=== PATIENT | male | born 1955 | race Caucasian/White ===

== ENCOUNTER 2021-01-31 13:55 | Emergency (ER) | payer BC, SELFPAY ==
[2021-01-31] VITALS (27 sets, daily range): BP systolic 171–227; BP diastolic 102–135; PULSE 59–76; RESP 11–24; TEMP 36.8–36.9; O2SAT 93–99
--- NOTE | 2021-01-31 14:08 | ECG_ITS ---
Measurements Intervals [place] Rate: 62 P: 37 OR: 251 QRS: -44 QRSD: 90 T: 33 QT: 403 QTc: 409 Interpretive Statements SINUS RHYTHM WITH FIRST DEGREE AV BLOCK LEFT AXIS DEVIATION POOR R WAVE PROGRESSION, ANTERIOR LEADS CONSIDER INFERIOR INFARCT, AGE INDETERMINATE BORDERLINE ST ABNORMALITY- HIGH LATERAL LEADS ABNORMAL ECG Electronically Signed On 01-31-2021 14:25:11 CDT by Rod Kilpatrick D.O.
[2021-01-31 14:33] LABS: Basophils Absolute Auto 0.1 K/mm3 (0.0-0.1); Basophils Percent Auto 1.2 % (0.2-1.2); Eosinophils Absolute Auto 0.2 K/mm3 (0-0.3); Eosinophils Percent Auto 4.1 % (0-4.4); Hematocrit 44.1 % (42.0-52.0); Hemoglobin 14.4 g/dL (14.0-18.0); Immature Granulocyte Absolute 0.02 K/mm3 (0.00-0.031); Immature Granulocyte Percent A 0.3 % (0-0.5); Lymphocytes Absolute Auto 1.28 K/mm3 (0.9-3.2); Mean Corpuscular HGB Conc 32.7 g/dl (32-36); Mean Corpuscular Hemoglobin 31.6 pg (26-34); Mean Corpuscular Volume 96.9 fl (80-100); Mean Platelet Volume 10.6 fl (7.4-10.4); Monocytes Absolute Auto 0.8 K/mm3 (0.1-0.6); Monocytes Percent Auto 13.8 % (2.6-8.5); Neutrophils Absolute Auto 3.4 K/mm3 (1.3-6.7); Neutrophils Percent Auto 58.6 % (45.5-73.1); Platelet Count Result 223 k/mm3 (150-375); Red Blood Count 4.55 M/mm3 (4.6-6.20); Red Cell Distribution Width 13.6 % (11.5-14.5); White Blood Count 5.8 K/mm3 (4.5-10.0)
[2021-01-31 14:36] LABS: Add Urine Microscopic? NO; Appearance Urine Clear (Clear); Bilirubin Urine Negative (Negative); Blood Urine Negative (Negative); Color Urine Yellow (Yellow); Glucose Urine UA Negative (Negative); Ketones Urine Negative (Negative); Leukocyte Esterase Ur Negative LEU/UL (Negative); Nitrate Urine Negative (Negative); Protein Urine Negative (Negative); Specific Grav Ur 1.015 (1.001-1.035); Urobilinogen Urine Negative mg/dL (<2.0)
[2021-01-31 14:43] LABS: Anion Gap 9 mmol/L (8-16); Blood Urea Nitrogen 16 mg/dL (9-20); Calcium 9.5 mg/dL (8.4-10.2); Carbon Dioxide 27 mmol/L (22-30); Chloride 102 mmol/L (98-107); Estimated CRCL calculation 108 ml/min; Estimated Glomerular Filt Rate > 60; Glucose 97 mg/dL (65-110); Potassium 4.2 mmol/L (3.4-5.0); Sodium 138 mmol/L (137-145)
[2021-01-31] MEDS: LORazepam (*CRX) 0.5 MG TABLET 1 MG PO (16:36)
--- NOTE | 2021-01-31 17:10 | ED.GENADULT ---
HPI - General Adult General Chief complaint: Recheck/Abnormal Lab/Rx Stated complaint: htn Time Seen by Provider: 01/31/21 16:21 Source: patient and RN notes reviewed Mode of arrival: ambulatory Limitations: no limitations History of Present Illness HPI narrative: Patient is 65 years old white male presented to the ED with elevated blood pressure, patient is asymptomatic. Patient scheduled to remove his teeth today. History of hypertension and Coreg 25 mg twice daily, losartan 100 mg a.m. Patient received his blood pressure this morning. Blood pressure measurement all day long yesterday was within normal limits. Patient was a scheduled to remove his teeth 4 days ago, blood pressure found to be elevated at the dentist office, patient received diazepam and was asked to call his family physician for further evaluation. Patient blood pressure has been within normal limit the last few days. Currently patient denying any headache, nausea, vomiting, chest pain, shortness of breath, back pain, abdominal pain or any other symptoms. Patient did not eat his breakfast this morning. Related Data Home Medications Medication Instructions Recorded Confirmed apixaban [Eliquis] 5 mg PO BID 01/31/21 atorvastatin [Lipitor] DAILY 01/31/21 carvedilol [Coreg] 25 mg PO BID 01/31/21 colchicine 0.6 mg PO DAILY 01/31/21 diazepam 10 mg PO BID PRN 01/31/21 ezetimibe [Zetia] mg 01/31/21 losartan 100 mg PO DAILY 01/31/21 Allergies Allergy/AdvReac Type Severity Reaction Status Date / Time vancomycin Allergy Redness of Verified 01/31/21 16:20 Skin verapamil Allergy Redness of Verified 01/31/21 16:20 Skin Review of Systems Review of Systems: Narrative: CONSTITUTIONAL: Denies fever, chills, or sweats. EYES: Denies visual changes, redness, or discharge. ENT: Denies rhinorrhea, congestion, sore throat, or otalgia. CARDIOVASCULAR: Denies chest pain, palpitations, or edema. RESPIRATORY: Denies cough or dyspnea. GASTROINTESTINAL: Denies abdominal pain, nausea, vomiting, or diarrhea. GENITOURINARY: Denies dysuria or hematuria. SKIN: Denies rash or itching. MUSCULOSKELETAL: Denies back pain, joint pain, or myalgia. NEUROLOGIC: Denies headache, numbness, or weakness. PSYCHIATRIC: Denies anxiety or depression. Exam Narrative: Exam Narrative: General appearance: Well-developed, well-nourished Skin: Normal color Head: Normocephalic, nontraumatic Eyes: Clear conjunctiva ENT: Oropharynx normal, ears normal, nose normal Neck: Supple, nontender Chest and respiratory: Airway patent, no respiratory distress, no accessory muscle use Heart: Regular rate/rhythm Abdomen: Soft, nontender, no organomegaly, quiet bowel sounds Vascular: Normal peripheral pulses, normal capillary refill. Musculoskeletal: Normal range of motion, nontender back Neurologic: Alert and oriented ?3, [employer] is normal as tested, no gross motor deficit Course Course Emergency Course: Improving Reevaluation(s) Reevaluation #1: Patient still asymptomatic, currently blood pressure is 176/106. The plan to discharge patient home, scheduled to take his night dose of losartan, 100 mg. I believe the stress and the worry feeling about the dental extraction is underlying cause of patient elevated blood pressure. Date: 01/31/21 Time: 18:32 Vital Signs Vital signs: Vital Signs Temperature 36.8 C 01/31/21 14:09 Pulse Rate 64 01/31/21 14:09 Respiratory Rate 16 01/31/21 14:09 Blood Pressure 181/107 H 01/31/21 14:09 Pulse Oximetry 96 01/31/21 14:09 Temperature 36.9 C 01/31/21 16:16 Pulse Rate 63 01/31/21 18:22 Respiratory Rate 15 01/31/21 18:22 Blood Pressure 178/105 H 01/31/21 18:22
[2021-01-31] MEDS: LABETALOL HCL INJ 100 MG/20 ML VIAL 20 MG IV PUSH (18:16)
--- NOTE | 2021-01-31 18:45 | PC.NURSE ---
Per EDP, Dr. Hwang, patient okay for discharge with blood pressure of 190/118. EDP states that patient is asymptomatic and is okay for discharge.
--- NOTE | 2021-01-31 18:47 | PC.NURSE ---
Dr. Hwang gives VORB of 0.1mg of Clonidine Q20 minutes x 3 doses max for hypertension while patient waits for daughter to pick him up.
[2021-01-31] MEDS: cloNIDine HCL 0.1 MG TABLET PO (18:51)
--- NOTE | 2021-01-31 19:21 | PC.NURSE ---
Manual BP 172/104. Per Dr Hwang, patient could be discharged once BP was in the 170s. Dr Clemente was notified of blood pressure, patient is asymptomatic- denies headache or chest pain. Patient is OK to be discharged with referral for follow-up of HTN per Dr Clemente. No prescriptions given, Dr Clemente notified.
== END 2021-01-31 19:38 | disposition home or self-care (01) ==
PROVIDERS: Emergency Provider Emergency Medicine
DX: I10 Essential (primary) hypertension (principal); F41.9 Anxiety disorder, unspecified; R94.31 Abnormal electrocardiogram [ECG] [EKG]
CPT/HCPCS: 36415; 80048; 81003; 85025; 93005; 96374; 99284; A9270

== ENCOUNTER 2024-03-16 09:54 | Emergency (ER) | payer BC, MEDICARE, SELFPAY ==
[2024-03-16 10:44] VITALS: BP 165/86; PULSE 72; RESP 16; TEMP 36.6; O2SAT 100
--- NOTE | 2024-03-16 12:54 | ED.GENADULT ---
HPI - General Adult General Chief complaint: Extremity Problem,Nontraumatic Stated complaint: Lt Lower Leg Bump Time Seen by Provider: 03/16/24 11:14 Source: patient, RN notes reviewed and old records reviewed Mode of arrival: ambulatory Limitations: no limitations History of Present Illness HPI narrative: 68-year-old male to [facility] for complaint of wound to left lower posterior leg. Patient states wound 1st appeared approximately 10 days ago after doing yd work. Patient reports that initially there were to small, raised, red lesions right next to each other that appeared to be insect bites/ stings. Patient reports keeping area clean with antibacterial soap and treating with antibacterial ointment and mupirocin that he got from his daughter. Patient states that surrounding area became significantly erythematous, edematous, warm and tender to touch for the 1st few days. Patient states that symptoms have improved significantly. Patient reports he is here today for a wound check because has a dark single scab that has formed over the central area where there are 2 lesions were initially present. Patient denies pain, swelling, Weakness, tingling numbness, fever, nausea, headache, chills, myalgias, urinary or bowel changes, pertinent medical history, shortness of breath, chest pain. Patient able to tolerate fluids by mouth. Respirations even and nonlabored. Patient resting comfortably in exam room in no acute distress. Related Data Home Medications Medication Instructions Recorded Confirmed apixaban 5 mg tablet (Eliquis) 5 mg PO BID 01/31/21 03/16/24 ezetimibe 10 mg tablet (Zetia) 10 mg DIRECTED 01/31/21 03/16/24 carvedilol 25 mg tablet 25 mg DIRECTED 03/16/24 03/16/24 rosuvastatin 40 mg tablet 40 mg DIRECTED 03/16/24 03/16/24 sacubitril 49 mg-valsartan 51 mg 1 tablet DIRECTED 03/16/24 03/16/24 tablet (Entresto) Allergies Allergy/AdvReac Type Severity Reaction Status Date / Time vancomycin Allergy Redness of Verified 01/31/21 16:20 Skin verapamil Allergy Redness of Verified 01/31/21 16:20 Skin Review of Systems Review of Systems: All systems reviewed & are unremarkable except as noted in HPI and below Constitutional: Constitutional: Reports no additional constitutional complaints Eyes: Eyes: Reports no additional eye complaints ENT: Reports system reviewed and no additional complaints, except as documented Cardiovascular: Cardiovascular: Reports no additional cardiovascular complaints, Denies chest pain and Denies dyspnea Respiratory: Respiratory: Reports no additional respiratory complaints, Denies cough and Denies dyspnea Musculoskeletal: Musculoskeletal: Reports no additional musculoskeletal complaints Integumentary/Breasts: Skin/Breast: Reports as per HPI and Reports wounds ( left posterior lower leg) Neurologic: Reports system reviewed and no additional complaints, except as documented Psychiatric: Psychiatric: Reports no additional psychiatric complaints PMFSH Comments At the time of my signature, I reviewed and agree with the nursing past medical, surgical, social, and family history. There is no relevant family history pertinent to the patient complaint. Exam Const: General: cooperative, healthy appearing, comfortable, no acute distress, alert and well nourished Nutritional Appearance: well nourished Orientation/consciousness: patient oriented x3 Limitations: no limitations HENMT: Head: normal to inspection Ears: external ears normal Face/Nose/Sinus: Normal external nose present, Normal nares present, normal facial exam, No erythema and No edema Face and sinus: normal facial exam, no erythema and no edema Mouth: Yes Normal oral and palatal mucosa present Eyes: General: appearance normal, both eyes and all related structures Neck: Neck: normal visual inspection, full ROM and no meningeal signs Lymphatic: no lymphadenopathy noted and no lymphedema noted Chest: Ches
== END 2024-03-16 11:50 | disposition home or self-care (01) ==
PROVIDERS: Emergency Provider Nurse Practitioner Family; PCP Internal Medicine Gastroenterology
DX: L03.116 Cellulitis of left lower limb (principal); I10 Essential (primary) hypertension; I25.2 Old myocardial infarction; I48.91 Unspecified atrial fibrillation; Z79.01 Long term (current) use of anticoagulants
CPT/HCPCS: 99213; G0463

== ENCOUNTER 2024-03-23 07:18 | Emergency (ER) | payer MEDICARE, SELFPAY ==
[2024-03-23 09:54] VITALS: BP 168/97; PULSE 66; RESP 16; O2SAT 97
--- NOTE | 2024-03-23 10:14 | ED.SKABFB ---
HPI - Skin/Abscess/Foreign Bdy General Chief complaint: Skin/Abscess/Foreign Body Stated complaint: insect bite Time Seen by Provider: 03/23/24 09:50 Source: patient Mode of arrival: ambulatory Limitations: no limitations History of Present Illness HPI narrative: Patient presents with a L calf wound. He thinks it originally was an insect (bug/spider) bite. He was seen at an urgent care within the past week and prescribed cephalexin 7 day course. He has 2 left. He notes it was improving and then started having increased pain (though denies any swelling). No fevers/chills. It is less painful than it was though still some pain. However, the redness is coming back and this is why he wanted it checked. Related Data Home Medications Medication Instructions Recorded Confirmed apixaban 5 mg tablet (Eliquis) 5 mg PO BID 01/31/21 03/16/24 ezetimibe 10 mg tablet (Zetia) 10 mg DIRECTED 01/31/21 03/16/24 carvedilol 25 mg tablet 25 mg DIRECTED 03/16/24 03/16/24 rosuvastatin 40 mg tablet 40 mg DIRECTED 03/16/24 03/16/24 sacubitril 49 mg-valsartan 51 mg 1 tablet DIRECTED 03/16/24 03/16/24 tablet (Entresto) Allergies Allergy/AdvReac Type Severity Reaction Status Date / Time vancomycin Allergy Redness of Verified 03/23/24 07:22 Skin verapamil Allergy Redness of Verified 03/23/24 07:22 Skin Exam Narrative: GENERAL: Well-appearing, well-nourished, and in no acute distress. HEAD: Normocephalic, atraumatic. EYES: Non injected, non icteric ENT: Nares clear, no rhinorrhea or epistaxis. NECK: Supple. CHEST: Speaking in full sentences. No respiratory distress. HEART: Regular rate and rhythm. . ABDOMEN: Soft, nondistended. EXTREMITIES: Normal range of motion. No lower extremity edema. SKIN: Warm, dry. 2cm lesion with central eschar at back of left calf with some nondistinct area of erythema around it. Compartments soft. No palpable abscess, not indurated. NEURO: No focal deficits. Alert and oriented x3. Sensation intact to touch. PSYCH: Normal mood and affect. Course Vital Signs Vital signs: Vital Signs Pulse Rate 66 03/23/24 09:54 Respiratory Rate 16 03/23/24 09:54 Blood Pressure 168/97 H 03/23/24 09:54 Pulse Oximetry 97 03/23/24 09:54 Temperature 98 F 03/23/24 12:19 Pulse Rate 69 03/23/24 12:19 Respiratory Rate 16 03/23/24 12:19 Blood Pressure 144/87 H 03/23/24 12:19 Pulse Oximetry 99 03/23/24 12:19 MDM - Skin/Abscess/Foreign Bdy MDM Narrative Medical decision making narrative: Patient presents with a skin lesion to left calf. Thinks it started as an insect bite/sting. In the ED he is afebrile with VS notable for hypertension. Initially seen at urgent care and prescribed Keflex 7 day course. It was improving but then started to become red around it again. Dimer normal. Will broaden coverage by adding additional antibiotic. Patient advised to continue taking both. Given first dose in the ED and rest of course prescribed. Discharged in stable condition. Differential Diagnosis Differential diagnosis: Likely abscess of skin or subcutaneous tissue, cellulitis, insect bites and other (considered DVT; considered abscess) Lab Data Attestation: I reviewed the patient's lab results. Lab results narrative: No leukocytosis, normal renal fuction 03/23/24 10:44 03/23/24 10:44 Labs: Lab Results 03/23/24 Range/Units 10:44 WBC 7.4 (4.5-10.0) K/mm3 RBC 4.62 (4.6-6.20) M/mm3 Hgb 15.7 (14.0-18.0) g/dL Hct 45.0 (42.0-52.0) % MCV 97.4 (80-100) fl MCH 34.0 (26-34) pg MCHC 34.9 (32-36) g/dl RDW 13.2 (11.5-14.5) % Plt Count 244 (150-375) k/mm3 MPV 9.7 (7.4-10.4) fl Immature Gran % (Auto) 0.7 H (0-0.5) % Neut % (Auto) 74.2 H (45.5-73.1) % Lymph % (Auto) 12.5 L (18.3-44.2) % [place] % (Auto) 10.3 H (2.6-8.5) % Eos % (Auto) 1.5 (0-4.4) % Baso % (Auto) 0.8 (0.2-1.2) % Lymph # (Auto) 0.92 (0.9-3
[2024-03-23 10:15] VITALS: BP 149/90; PULSE 67; RESP 16; TEMP 36.8; O2SAT 98
[2024-03-23 10:50] LABS: Basophils Absolute Auto 0.1 K/mm3 (0.0-0.1); Basophils Percent Auto 0.8 % (0.2-1.2); Eosinophils Absolute Auto 0.1 K/mm3 (0-0.3); Eosinophils Percent Auto 1.5 % (0-4.4); Hemoglobin 15.7 g/dL (14.0-18.0); Immature Granulocyte Absolute 0.05 K/mm3 (0.00-0.031); Immature Granulocyte Percent A 0.7 % (0-0.5); Lymphocytes Absolute Auto 0.92 K/mm3 (0.9-3.2); Lymphocytes Percent Auto 12.5 % (18.3-44.2); Mean Corpuscular HGB Conc 34.9 g/dl (32-36); Mean Corpuscular Volume 97.4 fl (80-100); Mean Platelet Volume 9.7 fl (7.4-10.4); Monocytes Absolute Auto 0.8 K/mm3 (0.1-0.6); Monocytes Percent Auto 10.3 % (2.6-8.5); Neutrophils Absolute Auto 5.5 K/mm3 (1.3-6.7); Neutrophils Percent Auto 74.2 % (45.5-73.1); Platelet Count Result 244 k/mm3 (150-375); Red Blood Count 4.62 M/mm3 (4.6-6.20); Red Cell Distribution Width 13.2 % (11.5-14.5); White Blood Count 7.4 K/mm3 (4.5-10.0)
[2024-03-23 11:05] LABS: INR 1.2; Prothrombin Time 15.6 Seconds (11.1-14.7)
[2024-03-23 11:06] LABS: Partial Thromboplastin Time 28.3 Seconds (22.3-36.8)
[2024-03-23 11:07] LABS: Anion Gap 7 mmol/L (4-12); Blood Urea Nitrogen 12 mg/dL (9-20); Calcium 8.9 mg/dL (8.4-10.2); Carbon Dioxide 28 mmol/L (22-30); Chloride 100 mmol/L (98-107); Estimated CRCL calculation 108 ml/min; Estimated Glomerular Filt Rate > 60; Glucose 100 mg/dL (65-110); Potassium 4.6 mmol/L (3.4-5.0); Sodium 135 mmol/L (137-145)
[2024-03-23 11:52] LABS: D Dimer 0.29 ug/mL (<0.48)
[2024-03-23] MEDS: SULFAMETHOXAZOLE/TRIMETHOPRIM 800/160 MG DS TABLET 1 TAB PO (12:14)
[2024-03-23 12:19] VITALS: BP 144/87; PULSE 69; RESP 16; TEMP 36.6; O2SAT 99
== END 2024-03-23 12:25 | disposition home or self-care (01) ==
PROVIDERS: Emergency Provider Student in an Organized Health Care Education/Training Program; PCP Internal Medicine Gastroenterology
DX: L03.116 Cellulitis of left lower limb (principal); I48.91 Unspecified atrial fibrillation; I10 Essential (primary) hypertension; I25.2 Old myocardial infarction; Z79.01 Long term (current) use of anticoagulants; Z79.899 Other long term (current) drug therapy
CPT/HCPCS: 36415; 80048; 85025; 85380; 85610; 85730; 99283; A9270

== ENCOUNTER 2024-09-13 12:24 | Emergency (ER) | payer MEDICARE, SELFPAY ==
--- NOTE | 2024-09-13 12:28 | ED.URI ---
HPI - URI/Sore Throat General Chief Complaint: Upper Respiratory Infection Stated Complaint: Upper Respiratory Symptoms Time Seen by Provider: 09/13/24 12:34 Source: patient Mode of arrival: ambulatory Limitations: no limitations History of Present Illness HPI Narrative: Gregg is a 68-year-old male patient presenting to the clinic today with complaints of productive cough, chest congestion, and sinus congestion. He reports symptoms been going on for approximately 2 weeks. He denies any fevers, chills, body aches. He denies any shortness of breath or chest pain. States he is coughing up greenish brown phlegm and blowing out yellow nasal drainage MD elicited complaint: cough, rhinorrhea and nasal congestion Related Data Home Medications ?Medication ?Instructions ?Recorded ?Confirmed ?Last Taken ?Type apixaban 5 mg tablet (Eliquis) 5 mg PO BID 01/31/21 03/16/24 Unknown History ezetimibe 10 mg tablet (Zetia) 10 mg DIRECTED 01/31/21 03/16/24 Unknown History carvedilol 25 mg tablet 25 mg DIRECTED 03/16/24 03/16/24 Unknown History rosuvastatin 40 mg tablet 40 mg DIRECTED 03/16/24 03/16/24 Unknown History sacubitril 24 mg-valsartan 26 mg tablet 09/13/24 Unknown History tablet (Entresto) Allergies Allergy/AdvReac Type Severity Reaction Status Date / Time vancomycin Allergy Redness of Verified 09/13/24 12:36 Skin verapamil Allergy Redness of Verified 09/13/24 12:36 Skin Review of Systems Review of Systems: Pertinent positives per HPI. Patient denies any fever, chills, rash, visual changes, dizziness, chest pain, palpitations, nausea, vomiting, diarrhea, constipation, abdominal pain, or any urinary issues. PMFSH Comments At the time of my signature, I reviewed and agree with the nursing past medical, surgical, social, and family history. There is no relevant family history pertinent to the patient complaint. Exam Narrative: General: Well-developed, well nourished, in no apparent distress Head: Normocephalic, atraumatic Eyes: Pupils equally round and reactive to light bilaterally, EOM intact, sclera and conjunctive clear, no discharge, lids normal Ears: TMs intact and congested, ear canals clear, no drainage, grossly hearing normal. Nose: Nares patent, yellow nasal discharge, moderate inflammation, no sinus tenderness. Mouth: Oral pharynx without lesions or masses, good dentition, MMM. Postnasal drip Neck: Supple, trachea midline, no enlargement of anterior or posterior cervical nodes, no thyroid masses or goiter palpable. Cardio: Regular rate and rhythm, s1 and s2 normal, no murmur appreciated. Resp: Inspiratory wheezing with expiratory rhonchi, no rales or rubs General: Well-developed, well nourished, in no apparent distress Extremities: No deformity, no edema, no cyanosis, capillary refill less than 2 seconds, peripheral pulses palpable and strong. Integumentary: [place], warm, and dry, intact without lesion, no rashes. Course Course Emergency Course: Portions of this record may have been created with voice recognition software. Level of Care: Express Care Visit Vital Signs Vital signs: Vital Signs Temperature 36.8 C 09/13/24 12:32 Pulse Rate 78 09/13/24 12:32 Respiratory Rate 20 09/13/24 12:32 Blood Pressure 130/86 09/13/24 12:32 Pulse Oximetry 94 09/13/24 12:32 Oxygen Delivery Room Air 09/13/24 12:32 Temperature 36.8 C 09/13/24 12:32 Pulse Rate 78 09/13/24 12:32 Respiratory Rate 20 09/13/24 12:32 Blood Pressure 130/86 09/13/24 12:32 Pulse Oximetry 94 09/13/24 12:32 Oxygen Delivery Room Air 09/13/24 12:32 Vital signs reviewed MDM - URI/Sore Throat MDM Narrative Medical decision making narrative: At the time of visit patient is resting comfortably on the exam table. Patient appears to be nontoxic. Diagnostics: Chest x-ray was performed and shows interstitial pattern in the lungs consistent with chronic interstitial lung disease versus less likely mild pulmonary edema. No cardiomegaly Plan: I suspect patient has bronchitis. Patient is not complaining any shortness of breath or chest pain and he has no pitting edema. No sign of cardiomegaly on the x-ray. Prescription for prednisone, azithromycin, and albuterol inhaler was sent to the pharmacy. Supportive measures were discussed with the patient and they voiced understanding discharge instructions and agrees to treatment plan. Return precautions reviewed Differential Diagnosis Differential diagnosis: Likely upper respiratory infection, otitis media, sinusitis, viral infection, bronchitis, influenza, pharyngitis and other (COVID) Imaging Data Radiologist's impression: ITS Impressions Chest X-Ray 09/13/24 12:49 IMPRESSION: 1. Interstitial pattern in the lungs, consistent with chronic interstitial lung disease or less likely mild pulmonary edema. Discharge Plan Discharge Clinical Impression: Bronchitis Patient Disposition: Home, Self-Care Condition: Stable Instructions: Antibiotic Form, Acute Bronchitis (ED) Additional Instructions: Chest x-ray shows no sign pneumonia. Take prescription medications only as prescribed-prednisone, albuterol inhaler, and azithromycin Increase fluids and stay well hydrated Tylenol/motrin for pain/fever Flonase and OTC antihistamines as directed Vicks vapor rub to open sinuses Sinus rinses for congestion Cepacol spray, cough drops, throat lozenges, warm tea with honey/lemon, gargle salt water to soothe throat BRAT diet for diarrhea Clear liquids x 24 hours then advance as tolerated for nausea/vomiting Go to the ED if you develop a worsening in your condition- high fever not controlled by Tylenol or Motrin, dehydration, weakness, lethargy, shortness of breath, or chest pain. Follow up with your PCP in 3-5 days if symptoms persist. Patient Language: Greek Prescriptions: New azithromycin 250 mg tablet See Rx Instructions .ROUTE .COMPLEX Qty: 6 0RF Rx Instructions: For 250 mg dose pack: take 500 mg today (day 1), then 250 mg for 4 days (days 2-5) prednisone 20 mg tablet 40 mg PO DAILY 5 Days Qty: 10 0RF albuterol sulfate 90 mcg/actuation HFA aerosol inhaler 2 puff inhalation Q4-6H PRN (Reason: shortness of breath or wheezing) 30 Days Qty: 8.5 0RF No Action sacubitril-valsartan [Entresto] 24-26 mg tablet carvedilol 25 mg tablet 25 mg DIRECTED rosuvastatin 40 mg tablet 40 mg DIRECTED ezetimibe [Zetia] 10 mg Tablet 10 mg DIRECTED Eliquis 5 mg Tablet 5 mg PO BID Follow-up/Referrals: PHYSICIAN,[employer] [Primary Care Provider] - Time of Disposition: 12:34 Quality NIHSS Nursing Documentation ED NIHSS nursing documentation: reviewed/agree
[2024-09-13 12:32] VITALS: BP 130/86; PULSE 78; RESP 20; TEMP 36.8; O2SAT 94
== END 2024-09-13 13:04 | disposition home or self-care (01) ==
PROVIDERS: Emergency Provider Nurse Practitioner Family
DX: J40 Bronchitis, not specified as acute or chronic (principal); I48.91 Unspecified atrial fibrillation; I10 Essential (primary) hypertension; I25.2 Old myocardial infarction; Z79.01 Long term (current) use of anticoagulants
CPT/HCPCS: 71046; 99213; G0463